=== PATIENT | male | born 1965 | race Caucasian/White ===

== ENCOUNTER 2020-01-13 05:22 | Inpatient (IN) | payer OTHER ==
[2020-01-13] MEDS ORDERED: SODIUM CHLORIDE 0.9% 1,000 ML IV STA (05:27)
[2020-01-13] MEDS ORDERED: cloNIDine 0.2 MG/24HR PATCH TRANSDERM STA (05:27)
[2020-01-13] MEDS ORDERED: hydrALAZINE HCL 20 MG/ML 1 ML VIAL IVP STA (05:27)
--- NOTE | 2020-01-13 05:29 | ED ---
Recheck HPI - General Stated Complaint: Hypertension Time Seen by Provider: 01/13/20 05:27 Source: RN notes reviewed, old records reviewed Limitations: no limitations - History of Present Illness Initial Comments: This is a 54-year-old male DF for evaluation patient Dese for evaluation regards to abnormal heart rate abnormal blood pressure. Patient was sent in from incarceration as he was found to have a significantly elevated blood pressure with a very low heart rate. Patient states she does not feel well but does not participate well in questioning questions obtained from providing offices early officer states he does not know or does not per family with the patient or his medical history MD Complaint: abnormal lab, other (abnormal HR and BP) -: unknown Returns Today for: other (HTN,decHR) Symptoms Since Prior Visit: no new symptoms Associated Symptoms: none - Related Data Home Medications Medication Instructions Recorded Confirmed Aspirin 650 mg PO TID PRN 01/13/20 01/13/20 Atenolol 100 mg PO DAILY 01/13/20 01/13/20 Diazepam 10 mg PO DIRECTED 01/13/20 01/13/20 Dicyclomine HCl 20 mg PO TID PRN 01/13/20 01/13/20 HYDROcodone/APAP 10-325MG [[place] 1 tab PO PC-TID 01/13/20 01/13/20 10-325] Lisinopril 20 mg PO DAILY 01/13/20 01/13/20 Promethazine [Phenergan] 25 mg PO TID PRN 01/13/20 01/13/20 cloNIDine HCL [Catapres] 0.2 mg PO ONCE 01/13/20 01/13/20 hydrOXYzine PAMOATE [Vistaril] 50 mg PO TID PRN 01/13/20 01/13/20 Allergies Allergy/AdvReac Type Severity Reaction Status Date / Time Penicillins Allergy Unknown Verified 01/13/20 07:43 Childhood Review of Systems ROS Statement: Those systems with pertinent positive or pertinent negative responses have been documented in the HPI. ROS Other: All systems not noted in ROS Statement are negative. Past Medical History - Past Family History Father Family Medical History: Hyperlipidemia, Hypertension Mother Family Medical History: Hyperlipidemia, Hypertension General Exam General appearance: alert, in no apparent distress Head exam: Present: atraumatic, normocephalic, normal inspection Eye exam: Present: normal appearance, PERRL, EOMI. Absent: scleral icterus, conjunctival injection, periorbital swelling ENT exam: Present: normal exam, mucous membranes moist Neck exam: Present: normal inspection. Absent: tenderness, meningismus, lymphadenopathy Respiratory exam: Present: normal lung sounds bilaterally. Absent: respiratory distress, wheezes, rales, rhonchi, stridor Cardiovascular Exam: Present: normal rhythm, tachycardia, normal heart sounds. Absent: systolic murmur, diastolic murmur, rubs, gallop, clicks GI/Abdominal exam: Present: soft, normal bowel sounds. Absent: distended, tenderness, guarding, rebound, rigid Extremities exam: Present: normal inspection, full ROM, normal capillary refill. Absent: tenderness, pedal edema, joint swelling, calf tenderness Back exam: Present: normal inspection Neurological exam: Present: alert, oriented X3, CN II-XII intact Psychiatric exam: Present: normal affect, normal mood Skin exam: Present: warm, dry, intact, normal color. Absent: rash Course Vital Signs 01/13/20 01/13/20 01/13/20 05:25 05:50 06:04 Temperature 97.6 F Pulse Rate 51 L 42 L 46 L Pulse Rate [ Space Engineer ] Respiratory 18 16 18 Rate Blood Pressure 117/102 171/102 169/94 O2 Sat by Pulse 97 96 97 Oximetry 01/13/20 01/13/20 01/13/20 06:08 06:32 07:00 Temperature Pulse Rate 43 L 43 L Pulse Rate [ 42 L Space Engineer ] Respiratory 16 18 Rate Blood Pressure 129/72 135/70 O2 Sat by Pulse 97 98 Oximetry - Reevaluation(s) Reevaluation #1: 01/13/20 06:50 Medical records reviewed Reevaluation #2: 01/13/20 06:50 Patient remains bradycardic despite lowering of blood pressure - Consultations Consultation #1: Spoke with Dr. Clark who is agreeable to admit Medical Decision Making - Medical Decision Making 54 male DF for evaluation hypertension bradycardia. Blood pressures improved but heart rate remains low. Patient will be admitted for evaluation by cardiology - Lab Data Result diagrams: 01/14/20 07:06 01/14/20 07:06 Lab Results 01/13/20 01/13/20 01/13/20 Range/Units 05:32 05:32 06:15 WBC 8.0 (3.8-10.6) k/uL RBC 5.23 (4.30-5.90) m/uL Hgb 15.3 (13.0-17.5) gm/dL Hct 46.8 (39.0-53.0) % MCV 89.4 (80.0-100.0) fL MCH 29.2 (25.0-35.0) pg MCHC 32.7 (31.0-37.0) g/dL RDW 13.1 (11.5-15.5) % Plt Count 281 (150-450) k/uL Neutrophils % 55 % Lymphocytes % 35 % Monocytes % 5 % Eosinophils % 3 % Basophils % 0 % Neutrophils # 4.4 (1.3-7.7) k/uL Lymphocytes # 2.8 (1.0-4.8) k/uL Monocytes # 0.4 (0-1.0) k/uL Eosinophils # 0.2 (0-0.7) k/uL Basophils # 0.0 (0-0.2) k/uL Sodium 141 (137-145) mmol/L Potassium 3.0 L (3.5-5.1) mmol/L Chloride 113 H (98-107) mmol/L Carbon Dioxide 21 L (22-30) mmol/L Anion Gap 7 mmol/L BUN 12 (9-20) mg/dL Creatinine 0.53 L (0.66-1.25) mg/dL Est GFR (CKD-EPI)AfAm >90 (>60 ml/min/1.73 sqM) Est GFR (CKD-EPI)NonAf >90 (>60 ml/min/1.73 sqM) Glucose 86 (74-99) mg/dL Estimated Ave Glu mg/dL Hemoglobin A1c (4.0-6.0) % Calcium 7.5 L (8.4-10.2) mg/dL Phosphorus 3.3 (2.5-4.5) mg/dL Magnesium 1.5 L (1.6-2.3) mg/dL Total Bilirubin 0.5 (0.2-1.3) mg/dL AST 48 (17-59) U/L ALT 35 (4-49) U/L Alkaline Phosphatase 56 (38-126) U/L Creatine Kinase 66 (55-170) U/L CK-MB (CK-2) (0.0-2.4) ng/mL Troponin I (0.000-0.034) ng/mL NT-Pro-B Natriuret Pep 501 pg/mL Total Protein 6.1 L (6.3-8.2) g/dL Albumin 2.9 L (3.5-5.0) g/dL TSH (0.465-4.680) mIU/L 01/13/20 01/13/20 01/13/20 Range/Units 06:15 06:15 06:15 WBC (3.8-10.6) k/uL RBC (4.30-5.90) m/uL Hgb (13.0-17.5) gm/dL Hct (39.0-53.0) % MCV (80.0-100.0) fL MCH (25.0-35.0) pg MCHC (31.0-37.0) g/dL RDW (11.5-15.5) % Plt Count (150-450) k/uL Neutrophils % % Lymphocytes % % Monocytes % % Eosinophils % % Basophils % % Neutrophils # (1.3-7.7) k/uL Lymphocytes # (1.0-4.8) k/uL Monocytes # (0-1.0) k/uL Eosinophils # (0-0.7) k/uL Basophils # (0-0.2) k/uL Sodium (137-145) mmol/L Potassium (3.5-5.1) mmol/L Chloride (98-107) mmol/L Carbon Dioxide (22-30) mmol/L Anion Gap mmol/L BUN (9-20) mg/dL Creatinine (0.66-1.25) mg/dL Est GFR (CKD-EPI)AfAm (>60 ml/min/1.73 sqM) Est GFR (CKD-EPI)NonAf (>60 ml/min/1.73 sqM) Glucose (74-99) mg/dL Estimated Ave Glu mg/dL 123 Hemoglobin A1c 5.9 (4.0-6.0) % Calcium (8.4-10.2) mg/dL Phosphorus (2.5-4.5) mg/dL Magnesium (1.6-2.3) mg/dL Total Bilirubin (0.2-1.3) mg/dL AST (17-59) U/L ALT (4-49) U/L Alkaline Phosphatase (38-126) U/L Creatine Kinase (55-170) U/L CK-MB (CK-2) <0.2 (0.0-2.4) ng/mL Troponin I <0.012 (0.000-0.034) ng/mL NT-Pro-B Natriuret Pep pg/mL Total Protein (6.3-8.2) g/dL Albumin (3.5-5.0) g/dL TSH 1.500 (0.465-4.680) mIU/L - EKG Data -: EKG Interpreted by Me (EKG shows sinus bradycardia rate of 42, AR 146, QRS 86, QTc 417) - Radiology Data Radiology results: report reviewed (Chest x-ray is negative for acute disease), image reviewed Critical Care Time Critical Care Time: Yes Total Critical Care Time: 31 Disposition Clinical Impression: Bradycardia, Weakness, Hypertension Disposition: ADMITTED IP TO THIS [facility] Condition: Fair Is patient prescribed a controlled substance at d/c from ED?: No
[2020-01-13 05:54] LABS: Basophils % (A) 0 %; Eosinophils # (A) 0.2 k/uL (0-0.7); Eosinophils % (A) 3 %; HCT 46.8 % (39.0-53.0); HGB 15.3 gm/dL (13.0-17.5); Lymphocytes # (A) 2.8 k/uL (1.0-4.8); Lymphocytes % (A) 35 %; MCH 29.2 pg (25.0-35.0); MCHC 32.7 g/dL (31.0-37.0); MCV 89.4 fL (80.0-100.0); Mean Platelet Volume 8.9; Monocytes # (A) 0.4 k/uL (0-1.0); Monocytes % (A) 5 %; Neutrophils # (A) 4.4 k/uL (1.3-7.7); Neutrophils % (A) 55 %; Platelet Count 281 k/uL (150-450); RBC 5.23 m/uL (4.30-5.90); RDW 13.1 % (11.5-15.5)
[2020-01-13] MEDS ORDERED: NITROGLYCERIN SL TABS 0.4 MG TAB SUBLINGUAL PRN (06:48)
[2020-01-13 06:52] LABS: ALT 35 U/L (4-49); AST 48 U/L (17-59); African American GFR (CKD) >90 (>60 ml/min/1.73 sqM); Albumin 2.9 g/dL (3.5-5.0); Alkaline Phosphatase 56 U/L (38-126); Anion Gap 7 mmol/L; Blood Urea Nitrogen 12 mg/dL (9-20); Calcium 7.5 mg/dL (8.4-10.2); Carbon Dioxide 21 mmol/L (22-30); Chloride 113 mmol/L (98-107); Creatine Kinase 66 U/L (55-170); Glucose 86 mg/dL (74-99); Magnesium 1.5 mg/dL (1.6-2.3); Non-African American GFR(CKD) >90 (>60 ml/min/1.73 sqM); Phosphorus 3.3 mg/dL (2.5-4.5); Sodium 141 mmol/L (137-145); Total Bilirubin 0.5 mg/dL (0.2-1.3); Total Protein 6.1 g/dL (6.3-8.2)
[2020-01-13 07:11] LABS: Creatine Kinase MB <0.2 ng/mL (0.0-2.4); Troponin I <0.012 ng/mL (0.000-0.034)
[2020-01-13] MEDS ORDERED: ASPIRIN 325 MG TAB PO PRN (09:19)
[2020-01-13] MEDS ORDERED: Potassium Replacement Protocol 1 EACH MISC MISCELLANE PRN (09:32)
[2020-01-13] MEDS: ATORVASTATIN 80 MG TAB PO SCH (09:40)
[2020-01-13] MEDS: HYDROcodone/APAP 10-325MG 1 EACH TAB PO PRN ×2 (09:40→18:10)
[2020-01-13] MEDS: LISINOPRIL 20 MG TAB PO SCH (09:41)
[2020-01-13] MEDS: MAGNESIUM SULFATE-D5W PMX 1 GM in DEXTROSE/WATER 1 100ML.BAG IVPB SCH ×2 (09:41→11:15)
[2020-01-13] MEDS: POTASSIUM CHLORIDE ER 20 MEQ TAB.ER PO SCH ×2 (09:45→11:16)
[2020-01-13] MEDS ORDERED: POTASSIUM CHLORIDE ER 20 MEQ TAB.ER PO STA (12:30)
[2020-01-13] MEDS: amLODIPine 5 MG TAB PO SCH ×2 (12:36→21:30)
--- NOTE | 2020-01-13 14:00 | ECHOF ---
Referral Reason:[facility] MEASUREMENTS -------- HEIGHT: 180.3 cm WEIGHT: 61.2 kg BP: RVIDd: 2.7 cm (< 3.3) IVSd: 1.4 cm (0.6 - 1.1) LVIDd: 3.8 cm (3.9 - 5.3) LVPWd: 1.4 cm (0.6 - 1.1) IVSs: 1.7 cm LVIDs: 1.5 cm LVPWs: 2.2 cm Ao Diam: 3.0 cm (2.0 - 3.7) AV Cusp: 1.9 cm (1.5 - 2.6) LA Diam: 3.8 cm (2.7 - 3.8) MV EXCURSION: 14.577 mm (> 18.000) MV EF SLOPE: 45 mm/s (70 - 150) EPSS: 0.5 cm MV E Alexandre: 0.61 m/s MV DecT: 373 ms MV A Alexandre: 0.69 m/s MV E/A Ratio: 0.88 RAP: 5.00 mmHg RVSP: 15.28 mmHg FINDINGS -------- Resting bradycardia (HR<60bpm). This was a technically adequate study. The left ventricular size is normal. There is moderate concentric left ventricular hypertrophy. O verall left ventricular systolic function is normal with, an EF between 55 - 60 %. The right ventricle is normal in size. The left atrial size is normal. The right atrial size is normal. The aortic valve is trileaflet and appears structurally normal. The mitral valve is normal. The mitral valve leaflets are mildly thickened. Mild mitral regurgita tion is present. The tricuspid valve appears structurally normal. Mild tricuspid regurgitation present. Right vent ricular systolic pressure is normal at < 35 mmHg. There is no pulmonic regurgitation present. The aortic root size is normal. Normal inferior vena cava with normal inspiratory collapse consistent with estimated right atrial pre ssure of 5 mmHg. There is no pericardial effusion. CONCLUSIONS -------- 1. Resting bradycardia (HR<60bpm). 2. This was a technically adequate study. 3. The left ventricular size is normal. 4. There is moderate concentric left ventricular hypertrophy. 5. Overall left ventricular systolic function is normal with, an EF between 55 - 60 %. 6. The right ventricle is normal in size. 7. The left atrial size is normal. 8. The right atrial size is normal. 9. The aortic valve is trileaflet and appears structurally normal. 10. The mitral valve is normal. 11. Mild mitral regurgitation is present. 12. The tricuspid valve appears structurally normal. 13. Mild tricuspid regurgitation present. 14. Right ventricular systolic pressure is normal at < 35 mmHg. 15. There is no pulmonic regurgitation present. 16. The aortic root size is normal. 17. Normal inferior vena cava with normal inspiratory collapse consistent with estimated right atrial pressure of 5 mmHg. 18. There is no pericardial effusion. LENS GENERATING MACHINE TENDER: Tierney Holden RDCS
[2020-01-13] MEDS: DIAZEPAM 5 MG TAB PO PRN (15:52)
--- NOTE | 2020-01-13 17:38 | HP ---
HISTORY AND PHYSICAL 54-year-old came in today for sick sinus syndrome, admitted to the hospital due to not feeling right. He was sent to [facility] for apparently some alcohol intoxication issues for the last 4 days. He has been lightheaded, dizziness with some chest tightness. He was thought to have sick sinus syndrome, was admitted to the hospital. He had hypertension in the hospital here once like 94-102 diastolic with up to 170s to 160s systolic, pulse rate 46-51, went down the 30s to 40s in the ER. He is thin, cachectic. Lungs are scattered wheeze. Heart S1, S2. Abdomen is soft. Extremities no edema. Psych: Alert and oriented x3. Neuro: Cranial nerves are intact. Skin warm, dry. No rash. Hemoglobin 15.3, white count 8. EKG shows sinus bradycardia 42. ASSESSMENT AND PLAN: 1. Hypertension acceleration with bradycardia suspect sick sinus syndrome. 2. Near syncope secondary to the above. 3. Echocardiogram shows good ejection fraction. 4. He had severe hypokalemia and hypocalcemia, hypomagnesemia secondary to possibly alcohol. Magnesium was replaced. 5. Protein calorie malnutrition secondary to possible alcoholism. 6. Prognosis extremely guarded. 7. Replace electrolytes. 8. Follow up with Cardiology consult and we will see where he stands in next 24-48 hours for possible discharge. MMODL / IJN: [id number] /
--- NOTE | 2020-01-13 17:59 | CONS ---
CONSULTATION Sukhjinder Thomas is a 54-year-old gentleman who has been brought [facility] because of accelerated hypertension. He was seen in the ER, was found to be bradycardic also. He takes 100 mg of atenolol and also lisinopril. I was asked to see him mainly because he complained of some chest pain and also blood pressure control is suboptimal. When I went in to see him, patient is comfortable. Denies any chest pain. The discomfort he had lasted a few seconds each time. He has no pain at this time. Blood pressure is elevated. He is not in any distress. He denies any chest pain, shortness of breath or palpitations. PAST MEDICAL HISTORY: Past medical history is remarkable for hypertension. Patient does not have any history of prior myocardial infarction or CVA. There is a question of TIA, but I am not sure how accurate the history is. MEDICATIONS: At home include aspirin, lisinopril 20 mg daily, Catapres 0.2 mg once a day, he takes atenolol 100 mg daily and also [place]. ALLERGIES: TO PENICILLIN. REVIEW OF SYSTEMS: Unremarkable other than above-mentioned facts. PHYSICAL EXAMINATION: Blood pressure is 155/83, pulse rate is about 46 per minute. HEENT: Unremarkable. Fundus was not examined by me. Neck is supple. No JVD. I do not hear a carotid bruit. There is no thyromegaly. Heart exam reveals S1, S2 heard normally. No rub, murmur or gallop. Lungs are clear. Abdomen is soft, nontender. Lower extremities reveal normal pulses. No edema. Central nervous system is normal. EKG revealed a sinus bradycardia, no acute changes. Heart rate 42 beats per minute. IMPRESSION: 1. Accelerated hypertension. 2. Asymptomatic bradycardia. 3. Atypical chest pain. RECOMMENDATIONS: Patient's pain is very atypical. No intervention in this regard. We will obtain additional troponin. I am recommending that we place him on a combination of Norvasc 5 mg b.i.d., hold the a.m. atenolol for now. I will also discontinue the 650 mg of aspirin as advised by his admitting doctor. Hopefully with a combination of Norvasc and lisinopril, his blood pressure will be controlled. We will check an additional troponin level, review echocardiogram and then make further recommendations. I discussed my thoughts in detail with the patient. Thank you very much for the consult. EJFFERY / CHANDANA: [id number] /
[2020-01-13 18:56] LABS: Hemoglobin A1C 5.9 % (4.0-6.0)
[2020-01-14] MEDS: HYDROcodone/APAP 10-325MG 1 EACH TAB PO PRN ×2 (05:41→16:02)
[2020-01-14 07:29] LABS: Basophils % (A) 0 %; Eosinophils # (A) 0.3 k/uL (0-0.7); Eosinophils % (A) 3 %; HCT 45.5 % (39.0-53.0); HGB 14.7 gm/dL (13.0-17.5); Lymphocytes # (A) 2.7 k/uL (1.0-4.8); Lymphocytes % (A) 31 %; MCH 29.2 pg (25.0-35.0); MCHC 32.3 g/dL (31.0-37.0); MCV 90.3 fL (80.0-100.0); Mean Platelet Volume 7.2; Monocytes # (A) 0.6 k/uL (0-1.0); Monocytes % (A) 7 %; Neutrophils # (A) 4.7 k/uL (1.3-7.7); Neutrophils % (A) 55 %; Platelet Count 268 k/uL (150-450); RBC 5.04 m/uL (4.30-5.90); RDW 13.1 % (11.5-15.5); WBC 8.6 k/uL (3.8-10.6)
[2020-01-14 07:39] LABS: ALT 47 U/L (4-49); AST 58 U/L (17-59); African American GFR (CKD) >90 (>60 ml/min/1.73 sqM); Albumin 3.8 g/dL (3.5-5.0); Alkaline Phosphatase 87 U/L (38-126); Anion Gap 9 mmol/L; Blood Urea Nitrogen 17 mg/dL (9-20); Calcium 9.3 mg/dL (8.4-10.2); Carbon Dioxide 22 mmol/L (22-30); Chloride 106 mmol/L (98-107); Cholesterol 159 mg/dL (<200); Glucose 104 mg/dL (74-99); HDL Cholesterol 37 mg/dL (40-60); LDL Cholesterol,Calculated 99 mg/dL (0-99); Non-African American GFR(CKD) >90 (>60 ml/min/1.73 sqM); Potassium 4.7 mmol/L (3.5-5.1); Sodium 137 mmol/L (137-145); Total Bilirubin 0.4 mg/dL (0.2-1.3); Total Protein 7.6 g/dL (6.3-8.2); Triglycerides 117 mg/dL (<150)
[2020-01-14] MEDS ORDERED: ACETAMINOPHEN TAB 500 MG TAB PO PRN (08:37)
[2020-01-14] MEDS: ATORVASTATIN 80 MG TAB PO SCH (08:39)
[2020-01-14] MEDS: ASPIRIN 81 MG PO SCH (08:39)
[2020-01-14] MEDS: LISINOPRIL 20 MG TAB PO SCH (08:39)
[2020-01-14] MEDS: amLODIPine 5 MG TAB PO SCH ×2 (08:39→21:15)
--- NOTE | 2020-01-14 08:42 | PN ---
PROGRESS NOTE Mr. Thomas is in sinus rhythm, heart rate is in the high 40s and low 50s. He is asymptomatic. Blood pressure control is fairly decent. I am recommending that we increase the lisinopril to 20 mg b.i.d. continue amlodipine. No beta blockers. Increase activity. He can be discharged today and I will see him in the office in 3 weeks and we will perform a stress test as an outpatient. Vitals are stable. No chest pain or shortness of breath. Vitals are stable. No JVD. S1, S2 heard normally lungs are clear. Abdomen and lower extremity exam otherwise unremarkable. MMODL / IJN: [id number] /
[2020-01-14 13:14] VITALS: BMI 18.1
[2020-01-14] MEDS ORDERED: amLODIPine 5 MG TAB PO STA (16:02)
[2020-01-14] MEDS: DIAZEPAM 5 MG TAB PO PRN (21:18)
--- NOTE | 2020-01-15 00:01 | PN ---
PROGRESS NOTE This is a white male who was going to be cleared for discharge today, but his blood pressure came up severely high. We started him on Norvasc 5 mg b.i.d. and possible discharge home tomorrow. He is on Lipitor 80 mg daily. Valium 10 mg a.c. t.i.d. for anxiety, Zestril 20 mg daily for blood pressure also. CARDIOVASCULAR: S1, S2. LUNGS: Are clear. GI: Soft. HEMATOLOGY: Negative Homans. PLANS: Continue with blood pressure medications as mentioned above, and Cardiology will follow up with him as an outpatient. Possibly go back to longterm tomorrow. MMODL / IJN: [id number] /
[2020-01-15] MEDS: HYDROcodone/APAP 10-325MG 1 EACH TAB PO PRN ×2 (06:18→12:01)
[2020-01-15] MEDS: LISINOPRIL 20 MG TAB PO SCH (09:27)
[2020-01-15] MEDS: ASPIRIN 81 MG PO SCH (09:27)
[2020-01-15] MEDS: ATORVASTATIN 80 MG TAB PO SCH ×2 (09:27→09:29)
[2020-01-15] MEDS: amLODIPine 5 MG TAB PO SCH (09:27)
[2020-01-15 09:35] VITALS: RESP 16
[2020-01-15 09:39] VITALS: PULSE 52
[2020-01-15 12:09] VITALS: BP 141/73; TEMP 98
--- NOTE | 2020-01-15 14:21 | P.PN ---
Subjective Progress Note Date: 01/15/20 This is a 54-year-old gentleman who has a known history of hypertension, he was currently incarcerated at the [facility] halfway because of alcohol while driving. Came to the emergency room because of accelerated hypertension and was seen in consultation by Dr. Melody Castro. Patient was also found to be bradycardic on admission here. He was on 100 mg of atenolol as well as lisinopril at home prior to his admission here. Medication adjustments have been made. His echo revealed a normal left ventricular systolic function. Blood pressure this morning 140/70 with a heart rate in the 50s. Patient overall feels well, denies any chest discomfort and his breathing is stable. Objective - Vital Signs Vital signs: Vital Signs Temp 98.0 F 01/15/20 12:00 Pulse 52 L 01/15/20 12:00 Resp 16 01/15/20 12:00 BP 141/73 01/15/20 12:00 Pulse Ox 99 01/15/20 12:00 Intake & Output 01/14/20 01/15/20 01/15/20 18:59 06:59 18:59 Intake Total 610 222 240 Output Total 560 1 Balance 610 -338 239 Weight 62.3 kg 62.8 kg Intake: Oral 610 222 240 Output: Urine 560 1 Other: Voiding Method Toilet Toilet # Voids 2 2 0 # Bowel Movements 1 - Exam PHYSICAL EXAMINATION: GENERAL: 54-year-old gentleman in no acute distress at the time of my examination HEENT: Head is atraumatic, normocephalic. Pupils equal, round. Sclera anicteric. Conjunctiva are clear. Mucous membranes of the mouth are moist. Neck is supple. There is no elevated jugular venous pressure. No carotid bruit is heard. HEART EXAMINATION: Heart S1, S2 normal. No murmur or gallop heard. CHEST EXAMINATION: Lungs are clear to auscultation and precussion. No chest wall tenderness is noted on palpation or with deep breathing. ABDOMEN: Soft, nontender. Bowel sounds are heard. No organomegaly noted. EXTREMITIES: 2+ peripheral pulses with no evidence of peripheral edema and no calf tenderness noted. NEUROLOGIC patient is awake, alert and oriented 3 . . - Labs CBC & Chem 7: 01/14/20 07:06 01/14/20 07:06 Assessment and Plan Plan: Assessment and plan #1 accelerated hypertension #2 asymptomatic bradycardia #3 atypical chest pain with negative troponins. Echo revealed a normal left ventricular systolic function. Plan From cardiology's perspective, the patient may be able to be discharged. We will make him a follow-up appointment in the office down the road. DNP note has been reviewed, I agree with a documented findings and plan of care. Patient was seen and examined.
== END 2020-01-15 13:33 | disposition home or self-care (01) | DRG 309 ==
LOC: EC 05:22 → 3SCARD 06:48
PROVIDERS: ADMIT Family Medicine; ATTEND Family Medicine
DX: I49.5 Sick sinus syndrome (principal); E46 Unspecified protein-calorie malnutrition; Z68.1 Body mass index [BMI] 19.9 or less, adult; R64 Cachexia; E83.42 Hypomagnesemia; E83.51 Hypocalcemia; E87.6 Hypokalemia; F10.20 Alcohol dependence, uncomplicated; F41.9 Anxiety disorder, unspecified; I10 Essential (primary) hypertension; Z79.899 Other long term (current) drug therapy; Z82.49 Family history of ischemic heart disease and other diseases of the circulatory system; Z65.3 Problems related to other legal circumstances
CPT/HCPCS: 36415; 80053; 80061; 82550; 82553; 83036; 83735; 83880; 84100; 84443; 84484; 85025; 93005; 93306; 96361; 96374; 99291